=== PATIENT | male | born 1970 | race Caucasian/White ===

== ENCOUNTER → 2020-02-04 | Outpatient (CLI) | payer BC ==
--- NOTE | 2020-02-04 16:21 | XR ---
EXAMINATION TYPE: XR foot complete RT DATE OF EXAM: 02/04/2020 COMPARISON: NONE HISTORY: 49-year-old male M72.2, pain, plantar fasciitis. TECHNIQUE: 3 views FINDINGS: Small plantar heel spur. There is some soft tissue thickening noted at the origin of the plantar fasc ia measuring up to 9 mm. No acute fracture, subluxation, dislocation. IMPRESSION: Small plantar heel spur. In addition, there is some soft tissue thickening at the origin of the plant ar fascia measuring up to 9 mm. Findings can be seen in the setting of plantar fasciitis.
== END | disposition home or self-care (01) ==
LOC: RADXRMAIN 12:28
PROVIDERS: ATTEND Internal Medicine
DX: M77.31 Calcaneal spur, right foot (principal); M72.2 Plantar fascial fibromatosis

== ENCOUNTER → 2020-12-29 | Outpatient (CLI) | payer BC ==
--- NOTE | 2020-12-29 16:18 | XR ---
EXAMINATION TYPE: XR cervical spine w flex/ext DATE OF EXAM: 12/29/2020 COMPARISON: 03/28/2014 HISTORY: 50-year-old male M4 7.12, M1 6.11, neck pain. TECHNIQUE: 7 views FINDINGS: No predental space widening or prevertebral soft tissue swelling. Mild degenerative disc disease C4-C 5. Intervertebral disc prosthesis at C5-C6. Scattered facet and uncovertebral joint arthropathy. On the right, changes result in moderate bony neuroforaminal narrowing at C3-C4. Mild on the left at C3-C4 and moderate on the left at C7-T1. On neutral, there is 2 mm of anterior subluxation at the surgical C5-C6 level. With flexion, anterolisthesis increases to 5 mm. With extension, there is correction of the subluxation. Normal odontoid view. IMPRESSION: 1. C5-C6 intervertebral disc prosthesis with trace 2 mm of anterolisthesis on neutral. 2. Dynamic anterolisthesis upon flexion at this level (total 5 mm of anterolisthesis). 3. Correction of the C5-C6 anterolisthesis on extension. 4. Mild degenerative disc disease C4-C5. Scattered facet and uncovertebral joint arthropathy. 5. Changes result in moderate bony neuroforaminal narrowing on the right at C3-C4. Likely moderate on the left at C7-T1.
--- NOTE | 2020-12-29 16:25 | XR ---
EXAMINATION TYPE: XR Hip Complete RT DATE OF EXAM: 12/29/2020 Comparison: Correlation CT 01/01/2011 Clinical History: 50-year-old male M47.12 M16.11 Findings: Mild marginal spurring at the right hip with relative preservation of hip joint space. Phlebolith in the right side of the pelvis. Approximately 4 small needle fragments are noted within the anterior an d medial soft tissues of the upper thigh. In retrospect, these appear to have been present on the CT. No acute fracture, subluxation, dislocation. Impression: 1. Approximately 4 small needle fragments within the anterior medial upper thigh soft tissues. These appear to have been present on the 2010 CT in retrospect. 2. Mild degenerative spurring at the right hip with preserved joint space. No acute osseous abnormali ty seen.
== END | disposition home or self-care (01) ==
LOC: RADXRMAIN 14:52
PROVIDERS: ATTEND Internal Medicine
DX: M43.12 Spondylolisthesis, cervical region (principal); M50.321 Other cervical disc degeneration at C4-C5 level; M16.11 Unilateral primary osteoarthritis, right hip
CPT/HCPCS: 72052; 73502

== ENCOUNTER → 2022-08-25 | Outpatient (CLI) | payer OTHER ==
--- NOTE | 2022-08-25 15:17 | XR ---
EXAMINATION TYPE: XR foot complete LT DATE OF EXAM: 08/25/2022 CLINICAL HISTORY: pain TECHNIQUE: Frontal, lateral and oblique images of the left foot are obtained. COMPARISON: None. FINDINGS: There is no acute fracture/dislocation evident. The joint spaces appear within normal ibanez its. The overlying soft tissue appears unremarkable. IMPRESSION: There is no acute fracture or dislocation. ICD 10 NO FRACTURE, INITIAL EVALUATION
== END | disposition home or self-care (01) ==
LOC: RADXRMAIN 14:57
PROVIDERS: ATTEND Internal Medicine
DX: M72.2 Plantar fascial fibromatosis (principal)

== ENCOUNTER 2024-01-29 08:16 | Day surgery (SDC) | payer OTHER ==
[2024-01-29] MEDS ORDERED: LIDOCAINE 1% (10MG/ML) FOR IV START INTRADERMA PRN (08:22)
[2024-01-29] MEDS ORDERED: LACTATED RINGERS 1,000 ML IV SCH (08:22)
[2024-01-29 08:34] VITALS: RESP 16; TEMP 98.2
[2024-01-29] MEDS: IV FLUID CONTINUATION 1,000 ML IV ONE (08:43)
[2024-01-29] MEDS ORDERED: PROPOFOL 10 MG/ML 20 ML VIAL IV ONE (09:03)
--- NOTE | 2024-01-29 09:20 | P.PCN ---
Date of Procedure: 01/29/24 Preoperative Diagnosis: Screening Postoperative Diagnosis: Normal colon Procedure(s) Performed: Colonoscopy Anesthesia: MAC Surgeon: Carlos Alberto Maria Pathology: none sent Condition: stable Disposition: same day Indications for Procedure: 53-year-old male presents today for screening colonoscopy. Denies any blood in his stool. No family history of colon cancer. He does state that father has history of colon polyps. Risks, benefits and alternatives were provided to the patient. Operative Findings: Overall normal-appearing colon Description of Procedure: The patient was brought to the endoscopy suite and placed in left lateral decubitus position and adequate sedation was achieved using conscious sedation. A digital rectal exam was performed and mild internal hemorrhoids were palpated. An endoscope was then placed in the rectum and advanced to the cecum as identified by landmarks including the appendiceal orifice and the ileocecal valve. The prep was good. The colonoscope was then slowly withdrawn, examining for any mucosal abnormalities. The cecum, ascending, transverse, descending and sigmoid colon were visualized adequately. No large inflammatory masses were noted throughout the colon. No obvious polyps. No evidence of diverticulosis. No evidence of bleeding. No evidence of stenosis or stricturing. Retroflexion was performed in the rectum and mild internal hemorrhoids were visible. Excess air was removed, the colonoscope withdrawn and the procedure terminated. The patient was then transferred to recovery unit in stable condition. Repeat colonoscopy should be performed in 7-10 years.
[2024-01-29 09:36] VITALS: BP 113/64; PULSE 64
== END 2024-01-29 09:54 | disposition home or self-care (01) ==
LOC: ORWHC2ENDO 08:16
PROVIDERS: ATTEND Surgery
DX: Z12.11 Encounter for screening for malignant neoplasm of colon (principal); K64.8 Other hemorrhoids; F41.9 Anxiety disorder, unspecified; Z87.891 Personal history of nicotine dependence; Z79.899 Other long term (current) drug therapy
CPT/HCPCS: 45378; J2704

== ENCOUNTER → 2024-05-14 | Outpatient (CLI) | payer OTHER ==
--- NOTE | 2024-05-14 12:26 | XR ---
EXAMINATION TYPE: XR wrist complete RT DATE OF EXAM: 05/14/2024 12:18 PM INDICATION: Patient age:Male; 53 years old; Reason for study: M25.531 PAIN IN RIGHT WRIST; PHH. pain COMPARISON: None TECHNIQUE: 4 views of the right wrist. Frontal, navicular, lateral, and oblique. FINDINGS: No acute osseous pathology, joint dislocation, or joint effusion. No osseous erosions. No j oint space narrowing. No evidence of any soft tissue swelling is seen. No radiopaque foreign body. IMPRESSION: No acute osseous pathology. [facility], , 05/14/2024 12:24 PM
== END | disposition home or self-care (01) ==
LOC: RADXRMAIN 11:30
PROVIDERS: ATTEND Internal Medicine
DX: M25.531 Pain in right wrist (principal)